=== PATIENT | female | born 1980 | race Caucasian/White ===

== ENCOUNTER 2016-05-22 11:07 | Day surgery (SDC) | payer OTHER ==
--- NOTE | ~2016-05-22 | OP ---
Record Of Operation [facility] [address] [place]. [address] NAME: IZZY MONTIEL : 76 STATUS : REG [facility] PAT#: [id number] AGE: 36 ADM/REG DATE : 05/22/16 MR#: [id number] REPORT SERV DATE: 05/22/16 DICTATED BY: NICA LAMAS JR. DATE: 05/22/16 REPORT STATUS : Draft TRANSCRIBED BY: MARYAN DATE: 05/22/16 DATE OF PROCEDURE: 05/22/2016 SURGEON: Ruperto Gardner CARDIOPULMONARY TECHNOLOGIST: May Judge. PROCEDURES: Retroareolar exploration and biopsy of the left breast. PREOPERATIVE DIAGNOSIS: Left nipple discharge. POSTOPERATIVE DIAGNOSIS: Left nipple discharge. ANESTHESIA: General. INDICATIONS: The patient has presented with discharge from the left nipple. This is worsened and became bloody in nature. Imaging is nondiagnostic. Retroareolar exploration and biopsy is indicated for definitive diagnosis. FINDINGS: The drained duct was located at the 3 o'clock position today, extended fairly deep into the breast tissue on probing it. The tissues surrounding the duct was excised in the retroareolar location. This was the access site where previous ultrasound had demonstrated a dilated duct. Final diagnosis deferred to permanent section. The tissue was somewhat thickened in nature. DESCRIPTION OF PROCEDURE: With adequate general anesthesia, the patient was placed in the supine position. The left breast was prepped and draped sterilely. A lacrimal duct probe was utilized to probe the draining duct and a circumareolar incision was outlined in the lateral aspect of the breast. Marcaine 0.5% was used for local infiltration of anesthesia as adjuvant anesthesia. Incision was made and deepened into the breast tissue. A subareolar flap was raised to immediately encompass in the entrance point of the probe. The tissues surrounding the probe was then excised sharply from the surrounding tissues. This was ordered with appropriate marking sutures and submitted to Pathology for permanent section examination. Bleeding was controlled with electrocautery. No other significant abnormalities were encountered. The subareolar system was then closed with subcutaneous suture of 3-0 Monocryl. The wound was closed with subcutaneous 3-0 Monocryl and subcuticular Monocryl. Sterile dressings were applied. The patient tolerated the procedure well and left the operating room in satisfactory condition. ESTIMATED BLOOD LOSS: 10 mL. EMIL/MARYAN Nica Lamas Record Of Operation [address] [place]. [address] NAME: IZZY MONTIEL : 76 STATUS : REG [facility] PAT#: [id number] AGE: 36 ADM/REG DATE : 05/22/16 MR#: [id number] REPORT SERV DATE: 05/22/16 DICTATED BY: NICA LAMAS JR. DATE: 05/22/16 REPORT STATUS : Draft TRANSCRIBED BY: MARYAN DATE: 05/22/16 Tiffanie Morley / [id number] CC: Tiffanie Gardner Jr., MD
[~2016-05-22 11:07] MED LIST: IBU-200200 MG PO; JUNEL FE PO; PROAIR HFA INH
== END 2016-05-22 17:36 | disposition home or self-care (01) ==
LOC: SDC 11:07
PROVIDERS: Specialist
PROC: 0HBU0ZX Excision of Left Breast, Open Approach, Diagnostic (ICD-10-PCS; principal; 2016-05-22 12:45)
DX: N60.12 Diffuse cystic mastopathy of left breast (principal); J45.909 Unspecified asthma, uncomplicated; Z88.2 Allergy status to sulfonamides; Z88.1 Allergy status to other antibiotic agents; Z88.8 Allergy status to other drugs, medicaments and biological substances; Z90.49 Acquired absence of other specified parts of digestive tract; Z98.890 Other specified postprocedural states; Z79.899 Other long term (current) drug therapy
CPT/HCPCS: 84703; 88305; A9270-GY; J0690; J2250; J2270; J2405; J3010